=== PATIENT | male | born 1960 | race Caucasian/White ===

== ENCOUNTER 2022-05-05 06:09 | Emergency (ER) | payer BC ==
[2022-05-05 06:50] LABS: Urine Blood 2+ (Negative); Urine Glucose Negative (Negative); Urine Protein Negative (Negative); Urine Specific Gravity >=1.030 (1.005-1.030); Urine pH 6.5 (5.0-7.0)
--- NOTE | 2022-05-05 07:01 | RAD REPORT ---
EXAM DESCRIPTION: CTAbdomen Pelvis Wo Contrast - 05/05/2022 6:50 am CLINICAL HISTORY: KIDNEY STONES COMPARISON: None TECHNIQUE: CT of the abdomen and pelvis was performed without contrast. All CT scans are performed using dose optimization technique as appropriate and may include automated exposure control or mA/KV adjustment according to patient size. FINDINGS: Lower chest: No acute abnormality. Liver: No acute abnormality or suspicious lesions. Biliary: No biliary ductal dilatation. Stomach: No significant focal abnormality. Duodenum: No significant focal abnormality. Pancreas: No significant abnormality. Spleen: No significant abnormality. Adrenal: No suspicious lesions. Kidney/ureter: Mild left-sided hydroureteronephrosis secondary to a 3mm stone in the left distal uret er. Punctate stone in the right kidney. Possible small right renal cyst. Retroperitoneum: No retroperitoneal adenopathy. Vascular: No aneurysm. Bowel: No significant focal abnormality. Peritoneum: No ascites or free air. Bladder: Grossly unremarkable. Reproductive: No adnexal masses. Bones: No acute fracture. Multilevel degenerative changes are present in the spine. Other: n/a IMPRESSION: Mild left-sided hydroureteronephrosis secondary to a 3 mm stone in the left distal urete r.
[2022-05-05] MEDS ORDERED: ONDANSETRON 4 MG/2 ML VIAL ONE (07:03)
[2022-05-05] MEDS ORDERED: KETOROLAC 30 MG/ML INJ ONE ×2 (07:03→07:58)
[2022-05-05] MEDS ORDERED: NA CHLORIDE 0.9% 1,000 ML ONE (07:03)
[2022-05-05 07:10] LABS: Absolute Lymphocytes (CBC) 1.1 K/uL (0.7-4.9); Hematocrit 44.6 % (39.6-49.0); Lymphocytes % 9.9 % (15.3-44.8); MCV 89.6 fL (80-100); MPV 8.3 fL (7.6-11.3); RBC Red Blood Cell Count 4.98 M/uL (4.33-5.43)
[2022-05-05 07:36] LABS: Albumin 3.8 g/dL (3.4-5.0); Bilirubin Total 1.8 mg/dL (0.2-1.0); Protein, Total 6.8 g/dL (6.4-8.2)
--- NOTE | 2022-05-05 07:45 | ER ---
Nurse's Notes [facility] Name: Sally Bunch Age: 61 yrs Sex: Male : 1960 Arrival Date: 05/05/2022 Time: 06:12 Bed 5 Private MD: Diagnosis: Hydronephrosis with renal and ureteral calculous obstruction-3 mm left distal ureter, mild hydro Presentation: 05/05 06:25 Chief complaint: Patient states: i have been having some low back pain on the left side kd3 that started 3 days ago and kind of went away for a little while but this morning it has just gotten so unbearable. Coronavirus screen: Vaccine status:. Ebola Screen: No symptoms or risks identified at this time. Initial Sepsis Screen: Does the patient meet any 2 criteria? No. Patient's initial sepsis screen is negative. Does the patient have a suspected source of infection? No. Patient's initial sepsis screen is negative. Risk Assessment: Do you want to hurt yourself or someone else? Patient reports no desire to harm self or others. Onset of symptoms was May 05, 2022. 06:25 Method Of Arrival: Ambulatory kd3 06:25 Acuity: BONITA 3 kd3 Triage Assessment: 06:28 General: Appears uncomfortable, Behavior is calm, cooperative. Pain: Complains of pain kd3 in left low back. Neuro: Level of Consciousness is awake, alert, obeys commands, Oriented to person, place, time, situation. Respiratory: Airway is patent Trachea midline Respiratory effort is even, unlabored, Respiratory pattern is regular, symmetrical. Historical: - Allergies: 06:28 No Known Allergies; kd3 - Immunization history:: Adult Immunizations up to date. - Social history:: Smoking status: unknown. - Family history:: not pertinent. Screenin:03 [facility] ED Fall Risk Assessment (Adult) History of falling in the last 3 months, ph including since admission No falls in past 3 months (0 pts) Confusion or Disorientation No (0 pts) Intoxicated or Sedated No (0 pts) Impaired Gait No (0 pts) Mobility Assist Device Used No (0 pt) Altered Elimination No (0 pt) Score/Fall Risk Level 0 - 2 = Low Risk Oriented to surroundings, Maintained a safe environment. Abuse screen: Denies threats or abuse. Denies injuries from another. Nutritional screening: No deficits noted. Tuberculosis screening: No symptoms or risk factors identified. Assessment: 07:30 General: Appears in no apparent distress. Behavior is calm, cooperative, appropriate ph for age. Pain: Complains of pain in left mid back and left low back Pain radiates to left lower quadrant. Neuro: Level of Consciousness is awake, alert, obeys commands, Oriented to person, place, time, situation. Cardiovascular: Capillary refill < 3 seconds in bilateral fingers Patient's skin is warm and dry. Respiratory: Airway is patent Respiratory effort is even, unlabored. GI: Reports. : Reports pain in left lower quadrant(s) in lower back. Derm: Skin is healthy with good turgor, Skin is pink, warm \T\ dry. Vital Signs: 06:25 BP 136 / 57; Pulse 104; Resp 19; Temp 99.1(O); Pulse Ox 98% on R/A; kd3 07:05 BP 140 / 99; Pulse 65; Resp 19; Pulse Ox 92% ; kd3 07:05 Weight 117.93 kg; kd3 08:05 BP 129 / 87; Pulse 64; Resp 18; Temp 98.7; Pulse Ox 99% on R/A; ph ED Course: 06:12 Patient arrived in ED. ja2 06:15 Torres Galvin MD is Attending Physician. bs3 06:25 Isabella Loera, LOREN is Primary Nurse. kd3 06:28 Triage completed. kd3 06:28 Arm band placed on right wrist. kd3 06:53 CT Abd/Pelvis - Without Contrast In Process Unspecified. EDMS 07:13 Attending Physician role handed off by Torres Galvin MD adelaida 07:13 Isauro Hammer MD is Attending Physician. adelaida 07:44 Junior Maria MD is Referral Physician. adelaida 08:03 Patient has correct armband on for positive identification. Bed in low position. Call ph light in reach. Side rails up X 1. 08:05 IV discontinued, intact, bleeding controlled, No redness/swelling at site. Pressure ph dressing applied, d/c 20 G IV to RAC, placed by rn shift mgr staff. 08:05 No provider procedures requiring assistance completed. ph Administered Medications: 07:04 Drug: Ondansetron 4 mg Route: IVP; Site: right antecubital; kd3 07:05 Follow up: Response: No adverse reaction kd3 07:04 Drug: Ketorolac 15 mg Route: IVP; Site: right antecubital; kd3 08:02 Follow up: Response: No adverse reaction; Pain is decreased ph 07:04 Drug: NS 0.9% 1000 ml Route: IV; Rate: 100 ml/hr; Site: right antecubital; kd3 08:02 Follow up: Response: No adverse reaction; IV Status: Completed infusion; IV Intake: ph 1000ml 07:52 Not Given (Patient Refused): fentaNYL (PF) 50 mcg IVP once ph 08:02 Drug: Flomax (tamsulosin) 0.4 mg Route: PO; ph 08:02 Follow up: Response: No adverse reaction ph 08:02 Drug: Ketorolac 15 mg Route: IVP; Site: right antecubital; ph 08:03 Follow up: Response: No adverse reaction ph 08:02 Drug: Cipro (ciprofloxacin) 500 mg Route: PO; ph 08:03 Follow up: Response: No adverse reaction ph Medication: 08:03 VIS not applicable for this client. ph Intake: 08:02 IV: 1000ml; Total: 1000ml. ph Outcome: 07:45 Discharge ordered by MD. son 08:06 Discharged to home ambulatory. ph 08:06 Condition: good 08:06 Discharge instructions given to patient, Instructed on discharge instructions, follow up and referral plans. medication usage, Demonstrated understanding of instructions, follow-up care, medications, Prescriptions given X 4. 08:06 Patient left the ED. ph Signatures: Dispatcher [employer] EDMS Isauro Hammer MD MD cha Hall, Patricia RN RN ph Tiny Lebron Kyli, RN RN kd3 Torres Galvin MD MD bs3
--- NOTE | 2022-05-05 07:45 | EDPHYS ---
Physician Documentation [facility] Name: Sally Bunch Age: 61 yrs Sex: Male : 1960 Arrival Date: 05/05/2022 Time: 06:12 Bed 5 Private MD: ED Physician Isauro Hammer HPI: 05/05 06:24 This 61 yrs old Male presents to ER via Unassigned with complaints of Low bs3 Back Pain. 06:24 61yo m hx of htn, cad sp stent pw left flank pain. Intermittent, started 3 weeks ago bs3 but resolved then returned yesterday, associated nausea, no vomiting. No urinary symptoms, nothing makes it better or worse, can't find a position of comfort. No hx of kidney stones, no numbness, tingling or weakness. Took advil earlier tonight without relief. . 07:39 The patient presents with pain that is acute, with no known mechanism of injury. The adelaida symptoms are located in the low back, left low back and left mid back. The pain radiates to the left low back and left mid back. The problem was sustained from unknown cause. Onset: The symptoms/episode began/occurred this morning. Modifying factors: The patient symptoms are alleviated by nothing, the patient symptoms are aggravated by nothing. Severity of symptoms: At their worst the symptoms were mild, in the emergency department the symptoms are unchanged. The patient has not experienced similar symptoms in the past. 07:41 Associated signs and symptoms: Pertinent positives: nausea. adelaida Historical: - Allergies: 06:28 No Known Allergies; kd3 - Immunization history:: Adult Immunizations up to date. - Social history:: Smoking status: unknown. - Family history:: not pertinent. ROS: 06:24 Constitutional: Negative for fever, chills bs3 06:24 All other systems are negative. 07:41 Constitutional: Negative for fever, chills, and weight loss, Eyes: Negative for injury, adelaida pain, redness, and discharge, ENT: Negative for injury, pain, and discharge, Neck: Negative for injury, pain, and swelling, Cardiovascular: Negative for chest pain, palpitations, and edema, Respiratory: Negative for shortness of breath, cough, wheezing, and pleuritic chest pain, Abdomen/GI: Negative for abdominal pain, nausea, vomiting, diarrhea, and constipation, : Negative for injury, bleeding, discharge, and swelling, MS/Extremity: Negative for injury and deformity, Skin: Negative for injury, rash, and discoloration, Neuro: Negative for headache, weakness, numbness, tingling, and seizure, Psych: Negative for depression, anxiety, suicide ideation, homicidal ideation, and hallucinations, Allergy/Immunology: Negative for hives, rash, and allergies, Endocrine: Negative for neck swelling, polydipsia, polyuria, polyphagia, and marked weight changes, Hematologic/Lymphatic: Negative for swollen nodes, abnormal bleeding, and unusual bruising. 07:41 Back: Positive for pain at rest, flank pain, on the left. Exam: 06:24 Constitutional: This is a well developed, well nourished patient who is awake, alert, bs3 and in no acute distress. Head/Face: Normocephalic, atraumatic. Eyes: Pupils equal round and reactive to light, extra-ocular motions intact. Lids and lashes normal. ENT: mmm, no posterior phyarngeal erythema Neck: Trachea midline, no thyromegaly, no neck stiffness Chest/axilla: Normal chest wall appearance and motion. Nontender with no deformity. No lesions are appreciated. Cardiovascular: Regular rate and rhythm with a normal S1 and S2. symmetric pulses in upper extremities Respiratory: Lungs have equal breath sounds bilaterally, clear to auscultation, no respiratory distress Abdomen/GI: Soft, non-tender, no rebound or guarding Back: No spinal tenderness. No costovertebral tenderness. Full range of motion. MS/ Extremity: Pulses equal, no cyanosis. Neurovascular intact. Full, normal range of motion. Neuro: Awake and alert, GCS 15, oriented to person, place, time, and situation. Cranial nerves II-XII grossly intact. Motor strength 5/5 in all extremities. Sensory grossly intact. 07:41 Back: pain, is absent, ROM is normal, normal spinal alignment noted, CVA tenderness, adelaida that is mild, is noted on the left, muscle spasm, is not present. Vital Signs: 06:25 BP 136 / 57; Pulse 104; Resp 19; Temp 99.1(O); Pulse Ox 98% on R/A; kd3 07:05 BP 140 / 99; Pulse 65; Resp 19; Pulse Ox 92% ; kd3 07:05 Weight 117.93 kg; kd3 08:05 BP 129 / 87; Pulse 64; Resp 18; Temp 98.7; Pulse Ox 99% on R/A; ph MDM: 06:15 Patient medically screened. bs3 06:24 Differential diagnosis: arthritis, strain, Herniated disc kidney stone, conisdered aaa, bs3 but unlikely. Data reviewed: vital signs, nurses notes. ED course: will check labs, ct, ua, give antiemetic and analgesic and reassess. 07:04 Independent interpretation of the following test(s) in the Emergency Department CT bs3 Scan: My interpretation is ct with perinephric stranding and hydroureter, with kidney stone. ED course: ct read by [place] as kidney stone 3mm. 07:40 Management of patient was discussed with the following: patient , pressure, elevate. adelaida Test considered but Not performed: Labs: no labs. Care significantly affected by the following chronic conditions: none. 07:43 Data reviewed: lab test result(s), radiologic studies, CT scan. adelaida 05/05 06:23 Order name: CBC with Diff; Complete Time: 07:49 bs3 05/05 06:23 Order name: Comprehensive Metabolic Panel; Complete Time: 07:49 bs3 05/05 06:23 Order name: Lipase; Complete Time: 07:49 bs3 05/05 06:23 Order name: CT Abd/Pelvis - Without Contrast; Complete Time: 07:04 bs3 05/05 06:50 Order name: Urine Dipstick-Ancillary; Complete Time: 06:58 EDMS 05/05 06:23 Order name: Urine Dipstick-Ancillary (obtain specimen); Complete Time: 06:49 bs3 Administered Medications: 07:04 Drug: Ondansetron 4 mg Route: IVP; Site: right antecubital; kd3 07:05 Follow up: Response: No adverse reaction kd3 07:04 Drug: Ketorolac 15 mg Route: IVP; Site: right antecubital; kd3 08:02 Follow up: Response: No adverse reaction; Pain is decreased ph 07:04 Drug: NS 0.9% 1000 ml Route: IV; Rate: 100 ml/hr; Site: right antecubital; kd3 08:02 Follow up: Response: No adverse reaction; IV Status: Completed infusion; IV Intake: ph 1000ml 07:52 Not Given (Patient Refused): fentaNYL (PF) 50 mcg IVP once ph 08:02 Drug: Flomax (tamsulosin) 0.4 mg Route: PO; ph 08:02 Follow up: Response: No adverse reaction ph 08:02 Drug: Ketorolac 15 mg Route: IVP; Site: right antecubital; ph 08:03 Follow up: Response: No adverse reaction ph 08:02 Drug: Cipro (ciprofloxacin) 500 mg Route: PO; ph 08:03 Follow up: Response: No adverse reaction ph Disposition Summary: 05/05/22 07:45 Discharge Ordered Location: Home adelaida Problem: new adelaida Symptoms: have improved adelaida Condition: Stable adelaida Diagnosis - Hydronephrosis with renal and ureteral calculous obstruction - 3 mm left distal adelaida ureter, mild hydro Followup: adelaida - With: Private Physician - When: 2 - 3 days - Reason: Recheck today's complaints, Continuance of care, Re-evaluation by your physician Followup: adelaida - With: Junior Maria MD - When: 2 - 3 days - Reason: Recheck today's complaints, Re-evaluation by your physician Discharge Instructions: - Discharge Summary Sheet adelaida - Kidney Stones adelaida - Kidney Stones, [id number] adelaida - Hydronephrosis [facility] - Dietary Guidelines to Help Prevent Kidney Stones adelaida Forms: - Medication Reconciliation Form [facility] - Thank You Letter [facility] - Antibiotic Education [facility] - Prescription Opioid Use [facility] Prescriptions: - Flomax 0.4 mg Oral capsule - take 1 capsule by ORAL route once daily 1/2 hour following the same meal each [facility] day; 20 capsule; Refills: 0, Product Selection Permitted - Zofran 4 mg Oral Tablet - take 1 tablet by ORAL route every 12 hours As needed; 20 tablet; Refills: 0, [facility] Product Selection Permitted - Cipro 500 mg Oral Tablet - take 1 tablet by ORAL route every 12 hours for 7 days; 14 tablet; Refills: 0, [facility] Product Selection Permitted - Tylenol-Codeine #3 300 mg-30 mg Oral - take 2 tablet by ORAL route every 4-6 hours; 20 tablet; Refills: 0, Product [facility] Selection Permitted Signatures: Dispatcher [employer] Isauro Forrester ph D, MD MD cha Hall, Patricia, RN RNoucette, Kyli, RN RN kd3 Torres Galvin MD MD bs3 Corrections: (The following items were deleted from the chart) 07:41 07:40 Eyes: Negative for injury, pain, redness, and discharge, ENT: Negative for adelaida injury, pain, and discharge, Neck: Negative for injury, pain, and swelling, Cardiovascular: Negative for chest pain, palpitations, and edema, Respiratory: Negative for shortness of breath, cough, wheezing, and pleuritic chest pain, Abdomen/GI: Negative for abdominal pain, nausea, vomiting, diarrhea, and constipation, Back: Negative for injury and pain, : Negative for injury, bleeding, discharge, and swelling, Skin: Negative for injury, rash, and discoloration, Neuro: Negative for headache, weakness, numbness, tingling, and seizure, Psych: Negative for depression, anxiety, suicide ideation, homicidal ideation, and hallucinations, Allergy/Immunology: Negative for hives, rash, and allergies, Endocrine: Negative for neck swelling, polydipsia, polyuria, polyphagia, and marked weight changes, Hematologic/Lymphatic: Negative for swollen nodes, abnormal bleeding, and unusual bruising, [facility] 07:42 07:40 MS/extremity: Positive for varicose , not bleeding, adelaida adelaida
[2022-05-05] MEDS ORDERED: TAMSULOSIN 0.4 MG SR CAP ONE (07:58)
[2022-05-05] MEDS ORDERED: CIPROFLOXACIN HCL 500 MG TAB ONE (07:58)
[2022-05-05 08:40] VITALS: BP 129/87; TEMP 98.7; O2SAT 99
== END 2022-05-05 08:06 | disposition home or self-care (01) ==
LOC: ER 06:09
DX: N13.2 Hydronephrosis with renal and ureteral calculous obstruction (principal); I10 Essential (primary) hypertension
CPT/HCPCS: 96361; 85025; 36415; 81003; 83690; 80053; 74176; 96375; 96374; 99283; J7030; J2405

== ENCOUNTER 2022-07-27 10:44 | Day surgery (SDC) | payer BC ==
[2022-07-23 10:04] LABS: Absolute Lymphocytes (CBC) 1.7 K/uL (0.7-4.9); Hematocrit 42.4 % (39.6-49.0); Lymphocytes % 27.6 % (15.3-44.8); MCV 90.5 fL (80-100); MPV 9.1 fL (7.6-11.3); RBC Red Blood Cell Count 4.69 M/uL (4.33-5.43)
[2022-07-23 10:17] LABS: Protime INR 1.01
--- NOTE | 2022-07-23 11:41 | EKG ---
Test Date: 2022-07-23 Test Time: 09:30:55 Sales Contract Administrator: FAY MEASUREMENT RESULTS: Intervals: Rate: 67 RI: 174 QRSD: 90 QT: 380 QTc: 401 [place]: P: 64 RI: 174 QRS: 58 T: 19 INTERPRETIVE STATEMENTS: Normal sinus rhythm Low voltage QRS Borderline ECG Compared to ECG 06/24/2022 10:29:42 No significant changes Electronically Signed On 07-23-22 11:41:09 CDT by Sumit Medellin
[2022-07-27] MEDS ORDERED: NA CHLORIDE 0.9% 500 ML ONE (10:55)
[2022-07-27] MEDS ORDERED: HEPA 1000U/500MLS 2,000 UNIT/1,000 ML BAG IV ONE (11:41)
[2022-07-27] MEDS ORDERED: LIDOCAINE 1% 20 ML MDV ONE (11:41)
[2022-07-27] MEDS ORDERED: FENTANYL CITR 100 MCG/2 ML ONE (11:42)
[2022-07-27] MEDS ORDERED: NITROGLYCERIN/D5W 25 MG/250 ML BTL IV ONE (11:43)
[2022-07-27] MEDS ORDERED: CLOPIDOGREL 75 MG TABLET ONE (11:43)
[2022-07-27] MEDS ORDERED: MIDAZOLAM HCL 2 MG/2 ML INJ ONE (11:43)
[2022-07-27] MEDS ORDERED: VERAPAMIL HCL 10 MG/4 ML VIAL IV ONE (11:43)
[2022-07-27] MEDS ORDERED: ATROPINE SULF 1 MG/10 ML SYR IV ONE (11:43)
[2022-07-27] MEDS ORDERED: NITROGLYCERIN 100 MCG/ML SYR (for cath lab use only) IV ONE (11:43)
[2022-07-27] MEDS ORDERED: HEPARIN 10,000 UNIT/10 ML VIAL IV ONE ×2 (11:44→12:13)
[2022-07-27] MEDS ORDERED: HEPARIN 5000 UNIT/ML 1 ML VIAL ONE (11:44)
[2022-07-27] MEDS ORDERED: HEPA 1000U/500MLS 1,000 UNIT/500 ML BAG IV ONE (12:13)
[2022-07-27 16:02] VITALS: BP 132/72; O2SAT 100
--- NOTE | 2022-07-27 21:49 | OP ---
Date of Procedure: 07/27/2022 Surgeon: BERNARD BRITO Procedures Performed: 1.Selective coronary angiogram. 2.Left heart catheterization. 3.Percutaneous coronary intervention of mid left anterior descending, severe stenosis, used 3.0 x 60 mm Synergy drug-eluting stent. Indication: Angina with known coronary artery disease of the LAD. Access: Right radial artery 6-Liberian closed with TR band. Complications: None. Bleeding: Less than 20 mL. Sedation: Total sedation time was 45 minutes, used fentanyl and Versed. Description Of Procedure: After risks, benefits, alternatives were explained, patient signed informe d consent. Patient was brought into the cardiac catheterization laboratory, prepped and draped in [facility] sterile fashion and accessed right radial artery using pediatric micropuncture kit and placed a 6 -Liberian Slender sheath, and took 5-Liberian Wagoner 4.0 catheter into the aortic root. Engaged left main and the right coronary artery, took standard views and then the catheter was pushed over the wire in to the LV, measured the LVEDP, pullback not recorded any gradient. Then, I gave systemic heparin to assure ACT level above 250 throughout the procedure and took an XB 3.5 guide 6-Liberian into the aortic root over a J-wire, engaged left main, and took a run-through wire into the LAD, placed distally. L esion was re-dilated using a 3.0 x 12 mm balloon and lesion expanded very well and then placed a 3.0 x 60 mm Synergy drug-eluting stent to overlap with mid LAD stent. Excellent results. Diagonal branc h comes off on very sharp angle. It is very difficult to wire, so left that alone for medical manage ment. Then, removed the wire and the guide and the sheath and placed TR band for good hemostasis. Findings: 1.Left main is large and normal. 2.LAD: Proximal with luminal regularities in the mid segment. There is a widely patent stent dista l to the stent and there is 80% stenosis, status post successful PCI as above and the diagonal 1 bran ch has proximal 80% stenosis, but it is very difficult to wire and challenging and it is not a very l arge vessel, so it was left for medical management. 3.Left circumflex is with luminal irregularity, but it is large and codominant. 4.RCA: Large codominant with luminal irregularities and the PDA stent is patent. Distal to the carlos nt, there is a 50% stenosis, which is stable. 5.LVEDP slightly elevated at 21 mmHg. Conclusion: 1.Severe mid LAD stenosis, status post successful PCI as above. 2.Severe diagonal 1 branch stenosis will be left to medical management due to technical difficulties to stent the vessel. 3.Moderate coronary artery disease elsewhere. 4.Elevated LVEDP. Plan: Aspirin, Plavix, and statin and diuretics as an outpatient. SR/MODL Voice ID: [id number] Report ID: [id number]
== END 2022-07-27 16:16 | disposition home or self-care (01) ==
LOC: CCL 10:44
PROVIDERS: ATTEND Internal Medicine
DX: I25.119 Atherosclerotic heart disease of native coronary artery with unspecified angina pectoris (principal); I10 Essential (primary) hypertension; E78.49 Other hyperlipidemia; Z95.5 Presence of coronary angioplasty implant and graft; Z79.899 Other long term (current) drug therapy
CPT/HCPCS: 93005; 85025; 80048; 36415; 85610; 85347 ×2; 85730; 92928; 93458; 76937; C1893; Q9966; C1725; J1644; J2250; J3010; J7040; J0461; J2001